=== PATIENT | male | born 1985 | race Caucasian/White ===

== ENCOUNTER 2019-10-07 00:34 | Emergency (ER) | payer OTHER, SELFPAY ==
[2019-10-07] MEDS ORDERED: cereBYX 50 MG/ML*** 500 MG in Sodium Chloride 0.9% 100 ML IVPB 100 ML IV ONE (00:45)
[2019-10-07] MEDS ORDERED: Sodium Chloride 0.9% 1000 ML 1,000 ML IV STA (00:45)
[2019-10-07] MEDS ORDERED: Sodium Chloride 0.9% 1000 ML 1,000 ML ONE (01:04)
[2019-10-07] MEDS ORDERED: Sodium Chloride 0.9% 100 ML IVPB 100 ML IV ONE (01:08)
[2019-10-07] MEDS ORDERED: cereBYX 50 MG/ML ONE (01:08)
--- NOTE | 2019-10-07 01:21 | ERPHSYRPT ---
- History of Present Illness Time Seen by Provider: 10/07/19 01:20 Source: patient, police Exam Limitations: no limitations Patient Subjective Stated Complaint: law officer states that he walked into the cell and pt was having a seizure, pt room mate stated that pt was reading a book before seizure began, pt states that his neck, tongue and toes hurt, pt states that he has hx of seizures and has not taken medication in 7 months, officer states that pt had tremors and was drooling, officer states that seizure lasted 5-6 minutes Triage Nursing Assessment: pt came into the er via ambulance, pt axo x3, pt states he had seizure, PERRL, health care analyst are good, presses and pulls are strong, pt has visible tremor to rt hand Physician History: law officer states that he walked into the cell and pt was having a seizure, pt room mate stated that pt was reading a book before seizure began, pt states that his neck, tongue and toes hurt, pt states that he has hx of seizures and has not taken medication in 7 months, officer states that pt had tremors and was drooling, officer states that seizure lasted 5-6 minutes, No fever, no chills Timing/Duration: today Character of Deficits: none Deficits: no difficulties Baseline/Normal Cognition: alert oriented x 3 Current Cognition: alert oriented x 3 Associated Symptoms: denies symptoms Allergies/Adverse Reactions: amoxicillin [Amoxicillin] Allergy (Verified 10/07/19 01:00) Penicillins Allergy (Verified 10/07/19 01:00) Home Medications: Fluoxetine HCl 20 mg [Prozac 20 MG] 20 mg PO HS 10/07/19 [History] Hx Tetanus, Diphtheria Vaccination/Date Given: Yes Hx Influenza Vaccination/Date Given: No Hx Pneumococcal Vaccination/Date Given: No - Review of Systems Constitutional: No Fever, No Chills Eyes: No Symptoms Ears, Nose, & Throat: No Symptoms Respiratory: No Cough, No Dyspnea Cardiac: No Chest Pain, No Edema, No Syncope Abdominal/Gastrointestinal: No Abdominal Pain, No Nausea, No Vomiting, No Diarrhea Genitourinary Symptoms: No Dysuria Musculoskeletal: No Back Pain, No Neck Pain Skin: No Rash Neurological: Seizure, No Dizziness, No Focal Weakness, No Sensory Changes Psychological: No Symptoms Endocrine: No Symptoms All Other Systems: Reviewed and Negative - Past Medical History Pertinent Past Medical History: Yes Neurological History: Seizures Respiratory History: Asthma - Past Surgical History Past Surgical History: Yes Gastrointestinal: Hernia Repair Musculoskeletal: Orthopedic Surgery - Social History Smoking Status: Current every day smoker How long have you smoked: 20 Exposure to second hand smoke: Yes Drug Use: none, marijuana Patient Lives Alone: No - Nursing Vital Signs Nursing Vital Signs: Initial Vital Signs Temperature 98.7 F 10/07/19 00:42 Pulse Rate 75 10/07/19 00:42 Respiratory Rate 17 10/07/19 00:42 Blood Pressure 134/97 10/07/19 00:42 O2 Sat by Pulse Oximetry 98 10/07/19 00:42 Pain Scale Pain Intensity 5 - Catlin Coma Scale Best Eye Response (Catlin): (4) open spontaneously Best Verbal Response (Catlin): (5) oriented Best Motor Response (Hayden): (6) obeys commands Hayden Total: 15 - Physical Exam General Appearance: no apparent distress, alert Eye Exam: bilateral eye: PERRL, EOMI Ears, Nose, Throat Exam: normal ENT inspection, moist mucous membranes Neck Exam: normal inspection, non-tender, supple Respiratory: normal breath sounds, lungs clear, airway intact, No respiratory distress Cardiovascular: regular rate/rhythm, No edema Gastrointestinal: soft, No tenderness, No distention Back Exam: normal inspection Extremity Exam: normal inspection, No pedal edema Mental Status: alert, 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 Coordination/Gait: normal finger to nose, normal gait Skin Exam: normal color, warm, dry, No rash SpO2: 98 - Course Nursing assessment & vital signs reviewed: Yes - CT Exams Head CT Interpretation: Tele-radiologist Report (no acute changes) Ordered Tests: Active Orders 24 hr Category Date Time Status EKG-ER Only STAT Care 10/07/19 00:45 Active HEAD WITHOUT CONTRAST [CT] Stat Exams 10/07/19 00:46 Taken CBC W DIFF Stat Lab 10/07/19 01:22 Completed CMP Stat Lab 10/07/19 01:22 Completed UA W/RFX UR CULTURE Stat Lab 10/07/19 01:56 Ordered Medication Summary Discontinued Medications Generic Name Dose Route Start Last Admin Trade Name Freq PRN Reason Stop Dose Admin Fosphenytoin Sodium Confirm 10/07/19 01:08 Cerebyx 50 Mg/Ml Administered 10/07/19 01:09 Dose 500 mg .ROUTE .STK-MED ONE Fosphenytoin Sodium 500 mg/ 110 mls @ 300 mls/hr 10/07/19 00:45 10/07/19 01: 12 Sodium Chloride IV 10/07/19 01:06 300 mls/hr STAT ONE Administration Sodium Chloride 1,000 mls @ 999 mls/hr 10/07/19 00:45 10/07/19 01:12 Sodium Chloride 0.9% 1000 Ml IV 10/07/19 01:45 999 mls/hr .Q1H1M STA Administration Sodium Chloride Confirm 10/07/19 01:04 Sodium Chloride 0.9% 1000 Ml Administered 10/07/19 01:05 Dose 1,000 mls @ ud .ROUTE .STK-MED ONE Sodium Chloride Confirm 10/07/19 01:08 Sodium Chloride 0.9% 100 Ml Ivpb Administered 10/07/19 01:09 Dose 100 mls @ ud IV .STK-MED ONE Lab/Rad Data: Laboratory Result Diagrams 10/07/19 01:22 10/07/19 01:22 Laboratory Results 10/07/19 10/07/19 Range/Units 01:22 01:22 WBC 13.1 H (4.0-10.5) K/mm3 RBC 4.86 (4.1-5.6) M/mm3 Hgb 14.9 (12.5-18.0) gm/dl Hct 44.6 (42-50) % MCV 91.8 (78-100) fl MCH 30.7 (26-32) pg MCHC 33.4 (32-36) g/dl RDW 13.0 (11.5-14.0) % Plt Count 198 (150-450) K/mm3 MPV 10.9 H (6-9.5) fl Gran % 77.7 H (36.0-66.0) % Eos # (Auto) 0.05 (0-0.5) Absolute Lymphs (auto) 2.01 (1.0-4.6) Absolute Monos (auto) 0.83 (0.0-1.3) Lymphocytes % 15.3 L (24.0-44.0) % Monocytes % 6.3 (0.0-12.0) % Eosinophils % 0.4 (0.00-5.0) % Basophils % 0.3 (0.0-0.4) % Absolute Granulocytes 10.21 H (1.4-6.9) Basophils # 0.04 (0-0.4) Sodium 142 (137-145) mmol/L Potassium 4.2 (3.5-5.1) mmol/L Chloride 104 (98-107) mmol/L Carbon Dioxide 29 (22-30) mmol/L Anion Gap 12.1 (5-15) MEQ/L BUN 17 (9-20) mg/dL Creatinine 0.83 (0.66-1.25) mg/dL Estimated GFR > 60.0 ML/MIN Glucose 92 (74-106) mg/dL Calcium 9.2 (8.4-10.2) mg/dL Total Bilirubin 0.40 (0.2-1.3) mg/dL AST 22 (17-59) U/L ALT 16 (0-50) U/L Alkaline Phosphatase 50 (38-126) U/L Serum Total Protein 7.8 (6.3-8.2) g/dL Albumin 4.4 (3.5-5.0) g/dL - Progress Progress: improved Counseled pt/family regarding: lab results, diagnosis, need for follow-up, rad results - Departure Departure Disposition: Fdc/Halfway Clinical Impression: Seizure disorder Condition: Stable Critical Care Time: No Referrals: DOCTOR,NO FAMILY [Primary Care Provider] - Instructions: Seizures, Adult (DC) Additional Instructions: REYNALDO CASTILLO was seen on 10/07/19 n the Emergency Room. At that time you were treated for an emergent condition, during your visit Laboratory, Radiology and/or other procedures may have been ordered. It is very important that you follow-up with your Primary Care Physician NO FAMILY DOCTOR within the next 24- 48 hours to review your Emergency Room visit and the final results of testing that was ordered. Some test results such as Urine Cultures, Blood Cultures, and other cultures if ordered will not be finalized for 24-48 hours. If you do not have a Primary Care Provider please call the medical records department at [phone] ext [phone] to obtain a copy of your results or you may sign into our patient portal to obtain these results by visiting us @ [email or web address] and completing the following steps: 1. Click on the Patient Portal link 2. Click the Patient Self Enrollment Link to complete the enrollment form and entering your 3. Once the enrollment form is completed you will receive an email with a temporary ID and password at the email address you provided. 4. Next choose a user name and password. Your user name must be at least 4 characters long and your password must be at least 4 characters long. 5. Choose a security question from the list and provide your answer to the question. If you already have signed into the Health Portal you may access your Health Care Information 06/06 by the following steps: 1. Login to our website @ [email or web address] 2. Enter your original user name and password. FAQS The [facility] Health Portal is an online tool that contains your Lab Results, Radiology Reports, Visit History, Discharge Instructions and Health Summary Lab and Radiology Results will not be available for 72 hours on the portal. The Portal is a secure site, passwords are encryted and URLs are re-written so they cannot be copied and pasted. You and authorized family members are the only ones who can access your Portal. Also there is a timeout feature that protects your information if you leave the Portal page open. If you have technical difficulty please use the Contact Us link on the page this will allow you to submit any questions you have regarding the Portal or you may contact the Medical Record Department at [phone] ext [phone]. Discharge/Care Plan REYNALDO CASTILLO was seen on 10/07/19 in the Emergency Room. The patient was counseled regarding Diagnosis,Lab results, Imaging studies, need for follow up and when to return to the Emergency Room. Prescriptions given: Discharge Note I have spoken with the patient and/or caregivers. I have explained the patient' s condition, diagnosis and treatment plan based on the information available to me at this time. I have answered the patient's and/or caregiver's questions and addressed any concerns. The patient and/or caregivers have as good understanding of the patient's diagnosis, condition and treatment plan as can be expected at this point. The vital signs have been stable. The patient's condition is stable and appropriate for discharge from the emergency department. The patient will pursue further outpatient evaluation with the primary care physician or other designated or consulting physician as outlined in the discharge instructions. The patient and/or caregivers are agreeable to this plan of care and follow-up instructions have been explained in detail. The patient and/or caregivers have received these instruction. The patient/and or caregivers are aware that any significant change in condition or worsening of symptoms should prompt an immediate return to this or the closest emergency department or call 911. Prescriptions: Levetiracetam [Keppra 500 mg ] 500 mg PO DAILY #30 tablet
[2019-10-07 01:22] LABS: Absolute Neutrophil Ct (ANC) 10.21 (1.4-6.9); BASOPHIL % 0.3 % (0.0-0.4); Basophil (Absolute #) 0.04 (0-0.4); Eosinophil % 0.4 % (0.00-5.0); Eosinophil (Absolute #) 0.05 (0-0.5); Hematocrit 44.6 % (42-50); Hemoglobin 14.9 gm/dl (12.5-18.0); Lymphocyte (Absolute #) 2.01 (1.0-4.6); Lymphocytes % 15.3 % (24.0-44.0); Mean Cell Volume 91.8 fl (78-100); Mean Corpuscular Hemoglobin 30.7 pg (26-32); Mean Corpuscular Hgb Concent. 33.4 g/dl (32-36); Mean Platelet Volume 10.9 fl (6-9.5); Monocyte (Absolute #) 0.83 (0.0-1.3); Monocytes % 6.3 % (0.0-12.0); Neutrophil % 77.7 % (36.0-66.0); Platelet Count 198 K/mm3 (150-450); Red Blood Count 4.86 M/mm3 (4.1-5.6); White Blood Count 13.1 K/mm3 (4.0-10.5)
[2019-10-07 01:34] LABS: ALBUMIN 4.4 g/dL (3.5-5.0); ALKALINE PHOSPHATASE 50 U/L (38-126); ANION GAP 12.1 MEQ/L (5-15); BLOOD UREA NITROGEN 17 mg/dL (9-20); CHLORIDE 104 mmol/L (98-107); Calcium 9.2 mg/dL (8.4-10.2); Carbon Dioxide 29 mmol/L (22-30); Creatinine 1 0.83 mg/dL (0.66-1.25); Glucose 92 mg/dL (74-106); Potassium 4.2 mmol/L (3.5-5.1); SGOT/AST 22 U/L (17-59); SGPT/ALT 16 U/L (0-50); SODIUM 142 mmol/L (137-145); Total Protein 7.8 g/dL (6.3-8.2)
[2019-10-07 02:38] LABS: Appearance CLEAR (CLEAR); Bilirubin NEGATIVE (NEGATIVE); Blood NEGATIVE Ery/ul (0-5); Glucose NEGATIVE (NEGATIVE); Ketones TRACE (NEGATIVE); Leukocyte Esterase NEGATIVE (NEGATIVE); Mucus SLIGHT /HPF (NEGATIVE); Nitrite NEGATIVE (NEGATIVE); Protein,Urine Dip NEGATIVE (Negative); Specific Gravity 1.024 (1.005-1.025); Urobilinogen NEGATIVE mg/dL (0-1)
[2019-10-07 02:40] VITALS: BP 129/97; PULSE 71; O2SAT 99
--- NOTE | 2019-10-07 10:33 | XRAY ---
Indication: Seizure. Multiple contiguous axial images obtained through the head without contrast. Comparison: May 11, 2012. Again normal appearing brain parenchyma, ventricles, and bony calvarium. Visualized paranasal sinuses and mastoid air cells are clear. Impression: Normal CT head without contrast exam. Comment: Preliminary interpretation was made by [facility]. No discrepancy. CTDI 63.38
== END 2019-10-07 02:40 ==
LOC: ED 00:34 → EEVIPCON 00:34 → ED 02:40
DX: G40.909 Epilepsy, unspecified, not intractable, without status epilepticus (principal); J45.909 Unspecified asthma, uncomplicated
CPT/HCPCS: 36415; 70450; 80053; 81001; 85025; 93005; 96360; 96374; 99284; Q2009